=== PATIENT | male | born 1965 | race African-American/Black ===

== ENCOUNTER 2024-02-04 19:30 | Emergency (ER) | payer MEDICAID ==
[~2024-02-04] VITALS: Ht 188 cm; Wt 99.8 kg
[2024-02-04] MEDS ORDERED: ATOR10TA PO (19:51)
[2024-02-04] MEDS ORDERED: LORAZEPAM 1 MG TABLET ONE (20:09)
[2024-02-04] MEDS ORDERED: ONDANSETRON ODT 4 MG TAB.RAPDIS ONE (20:10)
[2024-02-04] MEDS ORDERED: OXYCODONE/APAP 5-325 MG TABLET ONE (20:10)
[2024-02-04] MEDS: LORAZEPAM 0.5 MG TABLET PO ONE (20:15)
[2024-02-04] MEDS: OXYCODONE/APAP 5-325 MG TABLET PO ONE (20:15)
[2024-02-04] MEDS: ONDANSETRON ODT 4 MG TAB.RAPDIS SL ONE (20:16)
[2024-02-05 04:03] VITALS: BP 140/89; TEMP 97.8; O2SAT 96
== END 2024-02-04 23:55 | disposition home or self-care (01) ==
LOC: ER 19:32
DX: R51.9 Headache, unspecified (principal); F15.10 Other stimulant abuse, uncomplicated; E78.5 Hyperlipidemia, unspecified; F17.210 Nicotine dependence, cigarettes, uncomplicated; Z79.899 Other long term (current) drug therapy
CPT/HCPCS: A4606; A4663; Q0162